=== PATIENT | male | born 1995 | race African-American/Black ===

== ENCOUNTER 2018-04-06 21:34 | Emergency (ER) | payer MEDICAID, OTHER ==
[~2018-04-06] VITALS: Ht 172.7 cm; Wt 64.0 kg
[2018-04-06] MEDS ORDERED: HYDROCODONE/ACETAMINOPHEN 5/325MG TABLET PO ONE (23:45)
[2018-04-06] MEDS ORDERED: IBUPROFEN 600MG TABLET PO ONE (23:45)
[2018-04-07 01:54] VITALS: BP 112/73
== END 2018-04-07 02:31 | disposition home or self-care (01) ==
LOC: ER 21:34
DX: S20.20XA Contusion of thorax, unspecified, initial encounter (principal); R07.89 Other chest pain; R03.0 Elevated blood-pressure reading, without diagnosis of hypertension; F12.10 Cannabis abuse, uncomplicated; Y04.0XXA Assault by unarmed brawl or fight, initial encounter; Y93.89 Activity, other specified; Y92.89 Other specified places as the place of occurrence of the external cause
CPT/HCPCS: 71045; 71250; 99284

== ENCOUNTER 2023-06-02 16:09 | Emergency (ER) | payer MEDICAID, OTHER ==
[~2023-06-02] VITALS: Ht 175.3 cm; Wt 75.0 kg
[2023-06-02] MEDS ORDERED: ZIPRASIDONE MESYLATE 20MG/VIAL IM STA (16:15)
[2023-06-02] MEDS ORDERED: DIPHENHYDRAMINE 50MG/ML VIAL IM ONE (16:30)
[2023-06-02] MEDS: ZIPRASIDONE MESYLATE 20MG/VIAL IM NR (19:45)
[2023-06-02] MEDS: DIPHENHYDRAMINE 50MG/ML VIAL IM NR (19:45)
[2023-06-02] MEDS: LORAZEPAM 2MG/ML INJ IV ONE (20:04)
[2023-06-02] MEDS: HALOPERIDOL LACTATE 5MG/ML VIAL IM PRN (22:45)
[2023-06-02 23:08] LABS: BASOPHILS % 0.3 % (0.0-2.0); EOSINOPHILS % 0.3 % (0.0-5.0); HEMOGLOBIN. 15.1 g/dL (14.0-18.0); LYMPHOCYTES % 9.8 % (20.0-50.0); MEAN CORPUSCULAR HEMOGLOBIN 31.6 pg (28.0-32.0); MEAN CORPUSCULAR HGB CONC 34.2 g/dL (31.0-37.0); MEAN CORPUSCULAR VOLUME 92.3 fL (80.0-94.0); MEAN PLATELET VOLUME 8.8 fl (7.4-10.4); MONOCYTES % 6.3 % (2.0-8.0); NEUTROPHILS % 83.3 % (40.0-76.0); PLATELET 171 x1000/uL (130-400); RED BLOOD CELL COUNT 4.77 mill/uL (4.7-6.1); RED CELL DISTRIBUTION WIDTH 13.5 % (11.6-14.6); WHITE BLOOD COUNT 13.1 x1000/uL (4.5-11.0)
[2023-06-02 23:20] LABS: *AMPHETAMINES SCREEN URINE NEGATIVE (NEGATIVE); *BARBITURATES SCREEN URINE NEGATIVE (NEGATIVE); *BENZODIAZEPINES SCREEN URINE PRESUMPTIVE POSITIVE (NEGATIVE); *COCAINE SCREEN URINE NEGATIVE (NEGATIVE); CANNABINOID URINE SCREEN PRESUMPTIVE POSITIVE (NEGATIVE); ECSTASY MDMA SCREEN URINE NEGATIVE (NEGATIVE); METHADONE URINE SCREEN Neg (NEGATIVE); OPIATES URINE SCREEN NEGATIVE (NEGATIVE); PHENCYCLIDINE URINE SCREEN NEGATIVE (NEGATIVE)
[2023-06-02 23:30] LABS: ACETAMINOPHEN < 2 ug/mL (10-30); ALANINE AMINOTRANSFERASE 9 IU/L (10-49); ALBUMIN 4.8 g/dL (3.2-4.8); ASPARTATE AMINOTRANSFERASE 31 IU/L (<34); BILIRUBIN TOTAL 0.7 mg/dL (0.1-1.0); CALCIUM 9.2 mg/dL (8.7-10.4); CARBON DIOXIDE 28 mEq/L (21-32); CHLORIDE 109 mEq/L (98-107); CREATININE 0.9 mg/dL (0.6-1.3); GLUCOSE 89 mg/dL (70-105); POTASSIUM 3.9 mEq/L (3.5-5.1); PROTEIN TOTAL 7.6 g/dL (6.0-8.3); SODIUM 142 mEq/L (136-145); UREA NITROGEN BLOOD 6 mg/dL (9-23)
[2023-06-03] MEDS: OLANZAPINE 10 MG/VIAL IM ONE (00:08)
[2023-06-03 01:11] LABS: ETHANOL BLOOD < 10 mg/dL (<10)
[2023-06-03] MEDS: KETAMINE HCL 50 MG/ML 10ML IM NR (01:55)
[2023-06-03 04:15] VITALS: O2SAT 98
[2023-06-03] MEDS: LORAZEPAM 1MG TABLET PO ONE (15:00)
[2023-06-03 21:47] VITALS: BP 116/69; PULSE 75; RESP 18; TEMP 98.1
== END 2023-06-03 21:58 ==
LOC: ER 16:09
DX: R45.851 Suicidal ideations (principal); Z20.822 Contact with and (suspected) exposure to COVID-19
CPT/HCPCS: 80053; 80305; 80307; 80329; 80320; 85025; 36415; 96372 ×2; 96374; 99291; 87426; J3490 ×2; J1200; J1630 ×2; J2060; J3486; Z7610; G0480